=== PATIENT | female | born 1990 | race African-American/Black ===

== ENCOUNTER 2023-07-13 11:28 | Outpatient (CLI) | payer OTHER, SELFPAY ==
--- NOTE | ~2023-07-13 | MM_ITS ---
EXAMINATION: MM diagnostic ainsley LT w chiquis HISTORY: Left lateral breast pain. Lateral left breast lump reportedly palpated by referring physicia n. TECHNIQUE: ML, MLO and CC 3-D tomosynthesis images of the left breast were performed and synthetic 2- D images were generated. CAD analysis was submitted and interpreted. COMPARISON: None BREAST PARENCHYMAL COMPOSITION: The breasts are almost entirely fatty. FINDINGS: No suspicious mass or architectural distortion, malignant calcification, skin thickening or retraction is detected. IMPRESSION: 1. No mammographic evidence of malignancy 2. Routine annual mammographic screening beginning at age 40 is recommended unless symptoms or physic al findings present earlier BI-RADS Category 1: Negative Reviewed, dictated and finalized at location A. IMPRESSION: 1. No mammographic evidence of malignancy 2. Routine annual mammographic screening beginning at age 40 is recommended unl ess symptoms or physical findings present earlier BI-RADS Category 1: Negative
== END 2023-07-13 11:29 | disposition home or self-care (01) ==
LOC: ANHIMG 11:36
PROVIDERS: Visit Provider Nurse Practitioner Obstetrics & Gynecology
DX: N64.4 Mastodynia (principal)
CPT/HCPCS: 77061; 77065; G0279